=== PATIENT | female | born 1995 | race Caucasian/White ===

== ENCOUNTER 2016-08-20 19:38 | Emergency (ER) | payer OTHER ==
[~2016-08-20] VITALS: Ht 152.4 cm; Wt 81.6 kg
[2016-08-20 19:42] VITALS: BP 126/81
[2016-08-20] MEDS ORDERED: IBUPROFEN 600 MG TABLET PO ONE ×2 (20:00→20:02)
== END 2016-08-20 21:24 | disposition home or self-care (01) ==
LOC: ER 19:38
DX: S93.402A Sprain of unspecified ligament of left ankle, initial encounter (principal); J45.909 Unspecified asthma, uncomplicated; W10.9XXA Fall (on) (from) unspecified stairs and steps, initial encounter; Y93.89 Activity, other specified; Y92.89 Other specified places as the place of occurrence of the external cause; Y99.9 Unspecified external cause status
CPT/HCPCS: 73610-TC; A4606; Z7610

== ENCOUNTER 2016-12-31 16:54 | Emergency (ER) | payer OTHER ==
[~2016-12-31] VITALS: Ht 152.4 cm; Wt 81.6 kg
--- NOTE | 2016-12-31 16:56 | NUR ---
SOB, FLU SYMPTOMS x ONE WEEK. PLACED ON MONITOR. AWAITING MD ORDER
[2016-12-31] MEDS ORDERED: ASPIRIN 325 MG TABLET ONE (17:13)
[2016-12-31] MEDS ORDERED: ASPIRIN 325 MG TABLET PO ONE (17:30)
--- NOTE | 2016-12-31 17:30 | NUR ---
SHAWNA #20 IV ACCESS BLOOD SAMPLE COLLECTED
[2016-12-31 17:31] LABS: EOSINOPHILS # (AUTO) 0.1 /CMM (0.0-0.7)
[2016-12-31 17:34] LABS: BASOPHILS # (AUTO) 0.1 /CMM (0.0-0.2); BASOPHILS % (AUTO) 0.8 % (0.0-2.0); EOSINOPHILS % (AUTO) 1.2 % (0.0-6.0); HEMATOCRIT 39 % (33-45); HEMOGLOBIN 12.4 g/dL (11.5-14.8); LYMPHOCYTES # (AUTO) 3.4 /CMM (0.8-4.8); LYMPHOCYTES % (AUTO) 28.1 % (20.0-44.0); MEAN CORPUSCULAR HEMOGLOBIN 24 PG (26.0-33.0); MEAN CORPUSCULAR HGB CONC 32 g/dl (31.0-36.0); MEAN CORPUSCULAR VOLUME 77 fL (82-100); MONOCYTES % (AUTO) 8.4 % (2.0-12.0); NEUTROPHILS # (AUTO) 7.4 /CMM (1.8-8.9); NEUTROPHILS % (AUTO) 61.5 % (43.0-81.0); PLATELET COUNT (AUTO) 230 /CMM (150-450); RDW COEFFICIENT OF VARIATION 13.3 (11.5-15.0); RED BLOOD CELL COUNT(AUTO) 5.09 MIL/uL (4.0-5.2)
[2016-12-31 17:41] LABS: CALCIUM, SERUM 8.7 mg/dL (8.5-10.1); CARBON DIOXIDE 25 mmol/L (21-32); CHLORIDE 106 mmol/L (98-107); CREATININE 0.6 mg/dL (0.6-1.3); GLUCOSE 93 mg/dL (74-106); POTASSIUM 3.7 mmol/L (3.5-5.1); SODIUM SERUM 140 mmol/L (136-145); UREA NITROGEN, BLOOD 11 mg/dL (7-18)
[2016-12-31 17:49] LABS: TROPONIN I < 0.017 ng/mL (0.00-0.056)
[2016-12-31 18:02] LABS: B-TYPE NATRIURETIC PEPTIDE 8 PG/ML (0-125)
--- NOTE | 2016-12-31 19:03 | NUR ---
REPORT GIVEN TO TERE FOR SANTOHS
--- NOTE | 2016-12-31 19:07 | NUR ---
Patient discharged to home in stable condition. Written and verbal after care instructions given. Patient verbalizes understanding of instruction.
--- NOTE | 2016-12-31 19:07 | NUR ---
IV removed. Catheter intact and site benign. Pressure and 4x4 applied to site. No bleeding noted.
[2016-12-31 19:08] VITALS: BP 135/75
[2016-12-31 19:18] LABS: BAND % (MANUAL) 8 % (0.0-5.0); EOSINOPHILS % (MANUAL) 3 % (0-4); LYMPHOCYTES % (MANUAL) 25 % (16-48); MONOCYTES % (MANUAL) 6 % (0-11.0); MYELOCYTES % 1 % (0-0); NEUTROPHILS % (MANUAL) 57 (42-76)
== END 2016-12-31 19:08 | disposition home or self-care (01) ==
LOC: ER 16:56
DX: R07.89 Other chest pain (principal); M94.0 Chondrocostal junction syndrome [Tietze]; J45.909 Unspecified asthma, uncomplicated
CPT/HCPCS: 36415; 71010; 80048; 83880; 84484; 85025; 85378; 93005; 99285; A4606; Z7610

== ENCOUNTER 2018-09-24 12:55 | Emergency (ER) | payer OTHER ==
[~2018-09-24] VITALS: Ht 152.4 cm; Wt 97.5 kg
[2018-09-24 13:00] VITALS: BP 132/82
[2018-09-24] MEDS ORDERED: ACETAMINOPHEN 325 MG TABLET PO ONE (13:30)
[2018-09-24] MEDS ORDERED: ACETAMINOPHEN 325 MG TABLET ONE (13:58)
== END 2018-09-24 14:05 | disposition home or self-care (01) ==
LOC: ER 13:00
DX: S06.0X0A Concussion without loss of consciousness, initial encounter (principal); S00.33XA Contusion of nose, initial encounter; J45.909 Unspecified asthma, uncomplicated; F41.9 Anxiety disorder, unspecified; Z88.8 Allergy status to other drugs, medicaments and biological substances; W22.8XXA Striking against or struck by other objects, initial encounter; Y93.01 Activity, walking, marching and hiking; Y92.89 Other specified places as the place of occurrence of the external cause; Y99.8 Other external cause status
CPT/HCPCS: 70150-TC